=== PATIENT | male | born 1980 | race African-American/Black ===

== ENCOUNTER 2018-04-01 16:31 | Emergency (ER) | payer MEDICAID ==
[~2018-04-01] VITALS: Ht 180.3 cm; Wt 91.0 kg
[2018-04-01] MEDS ORDERED: PROCHLORPERAZINE 10MG/2ML VIAL IV ONE (17:15)
[2018-04-01] MEDS ORDERED: DIPHENHYDRAMINE 50MG/ML VIAL IV ONE (17:15)
[2018-04-01 17:53] LABS: BASOPHILS % 0.3 % (0.0-2.0); CHLORIDE 106 mEq/L (98-107); EOSINOPHILS % 0.2 % (0.0-5.0); HEMATOCRIT. 43.3 % (42.0-52.0); HEMOGLOBIN. 15.2 g/dL (14.0-18.0); LYMPHOCYTES % 9.4 % (20.0-50.0); MEAN CORPUSCULAR HEMOGLOBIN 29.8 pg (28.0-32.0); MEAN CORPUSCULAR VOLUME 84.6 fL (80.0-94.0); MEAN PLATELET VOLUME 8.3 fl (7.4-10.4); MONOCYTES % 5.5 % (2.0-8.0); NEUTROPHILS % 84.6 % (40.0-76.0); PLATELET 252 x1000/uL (130-400); RED BLOOD CELL COUNT 5.11 mill/uL (4.7-6.1); RED CELL DISTRIBUTION WIDTH 14.1 % (11.6-14.6)
[2018-04-01 17:54] LABS: INR 1.2; PARTIAL THROMBOPLASTIN TIME 27.5 sec (23.4-31.0); PROTHROMBIN TIME 12.3 sec (9.1-11.1)
[2018-04-01] MEDS ORDERED: IOHEXOL-350 100 ML BOTTLE ONE (18:43)
[2018-04-01 21:09] VITALS: BP 107/60
== END 2018-04-01 21:29 | disposition home or self-care (01) ==
LOC: ER 16:42
DX: R51 Headache (principal); R11.10 Vomiting, unspecified; I10 Essential (primary) hypertension; I67.1 Cerebral aneurysm, nonruptured; G43.909 Migraine, unspecified, not intractable, without status migrainosus; F12.10 Cannabis abuse, uncomplicated; F17.200 Nicotine dependence, unspecified, uncomplicated; Z98.890 Other specified postprocedural states
CPT/HCPCS: 36415; 70496; 80053; 85025; 85610; 85730; 93005; 96374; 96375; 99284; 99406; J0780; J1200; Q9967